=== PATIENT | female | born 1980 | race Asian ===

== ENCOUNTER 2018-07-06 08:40 | Emergency (ER) | payer OTHER ==
[2018-07-06] MEDS: IBUPROFEN 800 MG TAB PO (09:45)
[2018-07-06] MEDS: AMOXICILLIN/CLAV 875 MG TAB PO (09:59)
== END 2018-07-06 10:30 | disposition home or self-care (01) ==
LOC: FTE 10:30
DX: H66.92 Otitis media, unspecified, left ear (principal)
CPT/HCPCS: 99283; Z7502